=== PATIENT | female | born 1965 | race Caucasian/White ===

== ENCOUNTER 2021-07-19 10:42 | Emergency (ER) | payer BC ==
[2021-07-19] MEDS ORDERED: Lidocaine 1% PF 5 ML VIAL ONE (11:04)
[2021-07-19] MEDS ORDERED: Bupivacaine PF 0.5% 30 ML VIAL ONE (11:09)
[2021-07-19] MEDS ORDERED: Boostrix 0.5 ML (Tdap) VIAL ONE ×4 (12:44→12:55)
== END 2021-07-19 12:50 | disposition home or self-care (01) ==
LOC: CSHERS 10:42
DX: S61.012A Laceration without foreign body of left thumb without damage to nail, initial encounter (principal); Z23 Encounter for immunization; W26.8XXA Contact with other sharp object(s), not elsewhere classified, initial encounter
CPT/HCPCS: 12001; 90471; 90715; S0020